=== PATIENT | female | born 1955 | race Caucasian/White ===

== ENCOUNTER 2022-07-28 17:15 | Emergency (ER) | payer MEDICARE, BC | END 2022-07-28 19:12 | disposition home or self-care (01) | LOC: JP.ED 17:15 | DX: S93.402A Sprain of unspecified ligament of left ankle, initial encounter (principal); Z88.0 Allergy status to penicillin; Z88.4 Allergy status to anesthetic agent; W10.9XXA Fall (on) (from) unspecified stairs and steps, initial encounter | CPT/HCPCS: 73562-26-LT; 73562-LT; 73610-26-LT; 73610-LT; 99282; 99283 ==

== ENCOUNTER 2022-10-08 15:13 | Inpatient (IN) | payer MEDICARE, BC ==
[2022-10-08] MEDS ORDERED: Naloxone 0.4 MG/ML SDV IVPUSH PRN (15:44)
[2022-10-08] MEDS ORDERED: Sodium Chloride 0.9% 10 ML Syringe FLUSH PRN (15:44)
[2022-10-08] MEDS ORDERED: HYDROmorphone 1 MG/ML Syringe IVPUSH ONE (15:44)
[2022-10-08] MEDS ORDERED: Ondansetron 4 MG/2 ML SDV IVPUSH ONE (15:44)
[2022-10-08] MEDS ORDERED: Sodium Chloride 0.9% 1,000 ML IV ONE (15:45)
[2022-10-08] MEDS ORDERED: Pantoprazole 40 MG Vial IVPUSH ONE (15:46)
[2022-10-08 15:51] LABS: BASOPHILS ABSOLUTE AUTO 0.04 K/uL (0.00-0.10); BASOPHILS PERCENT AUTO 0.8 % (0.1-1.3); EOSINOPHILS ABSOLUTE AUTO 0.12 K/uL (0.00-0.40); EOSINOPHILS PERCENT AUTO 2.3 % (0.0-5.4); HEMATOCRIT 37.9 % (34.3-46.0); HEMOGLOBIN 12.7 g/dL (11.2-15.5); IMMATURE GRAN ABSOLUTE AUTO 0.02 K/uL (0.00-0.23); IMMATURE GRAN PERCENT AUTO 0.4 % (0.0-0.7); LYMPHOCYTES ABSOLUTE AUTO 1.71 K/uL (0.8-3.3); LYMPHOCYTES PERCENT AUTO 32.3 % (11.4-47.7); MEAN CORPUSCULAR HEMOGLOBIN 28.5 pg (31.6-35.5); MEAN CORPUSCULAR HGB CONC 33.5 g/dL (31.6-35.5); MONOCYTES ABSOLUTE AUTO 0.32 K/uL (0.20-0.90); NEUTROPHILS ABSOLUTE AUTO 3.09 K/uL (1.0-7.6); NEUTROPHILS PERCENT AUTO 58.2 % (40.0-78.1); PLATELET COUNT,PLT 324 K/uL (130-375); RED BLOOD CELL COUNT 4.46 M/uL (3.77-5.24); WHITE BLOOD CELL COUNT,WBC 5.3 K/uL (3.2-11.0)
[2022-10-08 16:12] LABS: POTASSIUM,K 3.5 mmol/L (3.6-5.2); SODIUM,NA 141 mmol/L (140-148)
[2022-10-08 16:13] LABS: A/G RATIO 1.2 (1.2-2.2); ALKALINE PHOSPHATASE 94 U/L (46-116); ANION GAP 17.5 mmol/L (5.0-14.0); BILIRUBIN TOTAL 0.5 mg/dL (0.2-1.0); BLOOD UREA NITROGEN,BUN 15 mg/dL (7-18); CALCIUM 9.7 mg/dL (8.5-10.1); CARBON DIOXIDE,CO2 22 mmol/L (21-32); CHLORIDE,CL 105 mmol/L (100-108); CREATININE 0.9 mg/dL (0.6-1.0); EST CRCL DRUG DOSING (CG) 56.78 mL/min; ESTIMATED GFR 70 mL/min (>60); GLUCOSE RANDOM 101 mg/dL (74-106); PROTEIN TOTAL,TP 7.3 g/dL (6.4-8.2)
[2022-10-08 16:14] LABS: ALANINE AMINOTRANSFERASE,ALT 75 U/L (12-78); ASPARTATE AMNIOTRANSFERASE,AST 117 U/L (15-37)
[2022-10-08] MEDS ORDERED: Iopamidol 612 MG/ML 100 ML Bottle IV SCH (16:30)
[2022-10-08] MEDS ORDERED: Sodium Chloride 0.9% 50 ML IV SCH (16:30)
[2022-10-08] MEDS ORDERED: Enoxaparin 100 MG/1 ML Syringe SUBCUT ONE (17:21)
[2022-10-08] MEDS ORDERED: Ciprofloxacin in D5W 400 MG in Premix Bag 1 BAG IV ONE ×2 (17:23)
[2022-10-08] MEDS ORDERED: metroNIDAZOLE/Normal Saline 500 MG in Premix Bag 1 BAG IV ONE (17:24)
[2022-10-08] MEDS ORDERED: oxyCODONE 5 MG Tab PO PRN (19:58)
[2022-10-08] MEDS ORDERED: HYDROmorphone 0.5 MG/0.5 ML Syringe IVPUSH PRN (19:58)
[2022-10-08] MEDS ORDERED: Ondansetron 4 MG/2 ML SDV IV PRN (19:58)
[2022-10-08] MEDS ORDERED: Warfarin 5 MG Tab PO ONE (19:58)
[2022-10-08] MEDS ORDERED: Ondansetron 4 MG Tab.DIS PO PRN (19:58)
[2022-10-08] MEDS ORDERED: Magnesium Hydroxide 400 MG/5 ML Susp 30 ML Cup PO PRN (19:58)
[2022-10-08] MEDS ORDERED: Sennosides/Docusate Sodium 50-8.6 MG Tab PO PRN (19:58)
[2022-10-08] MEDS ORDERED: Melatonin 3 MG Tab PO PRN (19:58)
[2022-10-08 20:24] LABS: PROTHROMBIN TIME 9.9 sec (9.2-10.6)
[2022-10-08] MEDS: Sodium Chloride 0.9% 1,000 ML IV SCH (21:00)
[2022-10-08] MEDS: Potassium Chloride 10 MEQ in Premix Bag 1 BAG IV SCH ×3 (21:05→23:22)
[2022-10-08] MEDS: Fenofibrate,Micronized 67 MG Cap PO SCH (21:15)
[2022-10-08] MEDS: Lactobacillus Rhamnosus GG (Probiotic) Cap PO SCH (21:17)
[2022-10-08] MEDS ORDERED: Warfarin 5 MG Tab ONE (22:34)
[2022-10-09] MEDS: Potassium Chloride 10 MEQ in Premix Bag 1 BAG IV SCH (00:24)
[2022-10-09] MEDS: metroNIDAZOLE/Normal Saline 500 MG in Premix Bag 1 BAG IV SCH ×2 (02:14→10:25)
[2022-10-09] MEDS: Acetaminophen 325 MG Tab PO PRN ×2 (04:20→16:21)
[2022-10-09] MEDS: Enoxaparin 100 MG/1 ML Syringe SUBCUT SCH ×2 (04:21→16:17)
[2022-10-09 05:06] LABS: HEMATOCRIT 31.6 % (34.3-46.0); HEMOGLOBIN 10.5 g/dL (11.2-15.5); MEAN CORPUSCULAR HEMOGLOBIN 28.8 pg (31.6-35.5); MEAN CORPUSCULAR HGB CONC 33.2 g/dL (31.6-35.5); MEAN CORPUSCULAR VOLUME 86.6 fL (81.4-99.0); RED BLOOD CELL COUNT 3.65 M/uL (3.77-5.24); WHITE BLOOD CELL COUNT,WBC 8.2 K/uL (3.2-11.0)
[2022-10-09 05:22] LABS: INR 1.1; PROTHROMBIN TIME 11.3 sec (9.2-10.6)
[2022-10-09 05:27] LABS: A/G RATIO 1.1 (1.2-2.2); ALANINE AMINOTRANSFERASE,ALT 159 U/L (12-78); ALBUMIN 3.1 g/dL (3.4-5.0); ALKALINE PHOSPHATASE 92 U/L (46-116); ASPARTATE AMNIOTRANSFERASE,AST 159 U/L (15-37); BILIRUBIN TOTAL 0.4 mg/dL (0.2-1.0); BLOOD UREA NITROGEN,BUN 8 mg/dL (7-18); CALCIUM 8.2 mg/dL (8.5-10.1); CARBON DIOXIDE,CO2 26 mmol/L (21-32); CHLORIDE,CL 105 mmol/L (100-108); CREATININE 0.8 mg/dL (0.6-1.0); EST CRCL DRUG DOSING (CG) 63.88 mL/min; ESTIMATED GFR 81 mL/min (>60); GLUCOSE RANDOM 133 mg/dL (74-106); POTASSIUM,K 3.6 mmol/L (3.6-5.2); PROTEIN TOTAL,TP 5.9 g/dL (6.4-8.2); SODIUM,NA 137 mmol/L (140-148)
[2022-10-09 05:28] LABS: ANION GAP 9.6 mmol/L (5.0-14.0)
[2022-10-09] MEDS ORDERED: Ciprofloxacin in D5W 400 MG in Premix Bag 1 BAG IV SCH ×2 (06:00)
[2022-10-09] MEDS: Pantoprazole 40 MG Tab.CR PO SCH (07:47)
[2022-10-09] MEDS: Sodium Chloride 0.9% 1,000 ML IV SCH (08:58)
[2022-10-09] MEDS: Lactobacillus Rhamnosus GG (Probiotic) Cap PO SCH ×2 (08:58→20:21)
[2022-10-09] MEDS: buPROPion 150 MG Tab.ER PO SCH (08:58)
[2022-10-09] MEDS: Rosuvastatin 10 MG Tab PO SCH (08:58)
[2022-10-09] MEDS: DULoxetine 30 MG Cap PO SCH (08:58)
[2022-10-09] MEDS: Aspirin 81 MG Tab.EC PO SCH (08:58)
[2022-10-09] MEDS ORDERED: Warfarin 5 MG Tab PO SCH (13:00)
[2022-10-09] MEDS: Ciprofloxacin 500 MG Tab PO SCH (20:20)
[2022-10-09] MEDS: Fenofibrate,Micronized 67 MG Cap PO SCH (20:21)
[2022-10-09] MEDS: metroNIDAZOLE 250 MG Tab PO SCH (20:21)
[2022-10-09] MEDS ORDERED: Ciprofloxacin 500 MG Tab PO SCH (21:00)
[2022-10-10] MEDS: Enoxaparin 100 MG/1 ML Syringe SUBCUT SCH (05:06)
[2022-10-10 05:12] LABS: INR 2.8; PROTHROMBIN TIME 26.6 sec (9.2-10.6)
[2022-10-10 05:16] LABS: A/G RATIO 0.9 (1.2-2.2); ALANINE AMINOTRANSFERASE,ALT 128 U/L (12-78); ALBUMIN 2.9 g/dL (3.4-5.0); ALKALINE PHOSPHATASE 89 U/L (46-116); ASPARTATE AMNIOTRANSFERASE,AST 86 U/L (15-37); BILIRUBIN TOTAL 0.4 mg/dL (0.2-1.0); BLOOD UREA NITROGEN,BUN 8 mg/dL (7-18); CALCIUM 8.5 mg/dL (8.5-10.1); CARBON DIOXIDE,CO2 26 mmol/L (21-32); CHLORIDE,CL 104 mmol/L (100-108); CREATININE 0.8 mg/dL (0.6-1.0); EST CRCL DRUG DOSING (CG) 63.88 mL/min; ESTIMATED GFR 81 mL/min (>60); GLUCOSE RANDOM 101 mg/dL (74-106); POTASSIUM,K 3.4 mmol/L (3.6-5.2); PROTEIN TOTAL,TP 6.2 g/dL (6.4-8.2); SODIUM,NA 138 mmol/L (140-148)
[2022-10-10 05:20] LABS: ANION GAP 11.4 mmol/L (5.0-14.0)
[2022-10-10] MEDS: Lactobacillus Rhamnosus GG (Probiotic) Cap PO SCH (10:27)
[2022-10-10] MEDS: Aspirin 81 MG Tab.EC PO SCH (10:27)
[2022-10-10] MEDS: buPROPion 150 MG Tab.ER PO SCH (10:27)
[2022-10-10] MEDS: DULoxetine 30 MG Cap PO SCH (10:27)
[2022-10-10] MEDS: Rosuvastatin 10 MG Tab PO SCH (10:27)
[2022-10-10] MEDS: metroNIDAZOLE 250 MG Tab PO SCH ×2 (10:28→14:52)
[2022-10-10] MEDS: Pantoprazole 40 MG Tab.CR PO SCH (10:28)
[2022-10-10] MEDS: Ciprofloxacin 500 MG Tab PO SCH (10:28)
== END 2022-10-10 16:10 | disposition home or self-care (01) | DRG 444 ==
LOC: JP.ED 15:13 → JP.ICU 19:15
PROVIDERS: ADMIT Internal Medicine; ATTEND Internal Medicine
DX: K80.00 Calculus of gallbladder with acute cholecystitis without obstruction (principal); K85.90 Acute pancreatitis without necrosis or infection, unspecified; I82.0 Budd-Chiari syndrome; K85.80 Other acute pancreatitis without necrosis or infection; E78.00 Pure hypercholesterolemia, unspecified; K80.42 Calculus of bile duct with acute cholecystitis without obstruction; I81 Portal vein thrombosis; Z79.01 Long term (current) use of anticoagulants; Z79.84 Long term (current) use of oral hypoglycemic drugs; Z90.49 Acquired absence of other specified parts of digestive tract; Z88.8 Allergy status to other drugs, medicaments and biological substances; Z88.0 Allergy status to penicillin; Z90.710 Acquired absence of both cervix and uterus; Z98.890 Other specified postprocedural states; Z88.4 Allergy status to anesthetic agent; Z79.82 Long term (current) use of aspirin; Z79.899 Other long term (current) drug therapy
CPT/HCPCS: 36415; 74177 ×2; 80053; 83605; 83690; 84484; 85025; 93005; 93010; 96365; 96367; 96372; 96375; 99284; 99285; C9113; J0744; J1170; J1650; J2405; J3490 ×3; J7030; Q9967; 74181; 85027; 85610; 86140; 99222; 99232; 99238; A9270-GY; J3480; U0002

== ENCOUNTER 2022-10-29 07:13 | Day surgery (SDC) | payer MEDICARE, BC ==
[~2022-10-29 07:13] MED LIST: Bupivacaine 0.5% 50 ML MDV ONE; Lidocaine 1% with EPINEPHrine 1:100,000 50 ML MDV ONE
[2022-10-29] MEDS ORDERED: Propofol 200 MG/20 ML SDV ONE ×2 (07:30→10:06)
[2022-10-29] MEDS ORDERED: fentaNYL 100 MCG/2 ML SDV ONE (07:30)
[2022-10-29] MEDS ORDERED: Midazolam 1 MG/ML 2 ML SDV ONE (07:30)
[2022-10-29] MEDS ORDERED: Lidocaine 0.5% 50 ML SDV ONE (07:31)
[2022-10-29] MEDS ORDERED: Dextrose 5%-Lactated Ringers 1,000 ML IV SCH (08:00)
[2022-10-29] MEDS ORDERED: ceFAZolin 2 GM in Premix Bag 1 BAG IV ONE (08:30)
== END 2022-10-29 11:48 | disposition home or self-care (01) ==
LOC: JP.SDS 07:13
PROVIDERS: ATTEND Surgery
DX: S60.452A Superficial foreign body of right middle finger, initial encounter (principal); E11.9 Type 2 diabetes mellitus without complications; G47.33 Obstructive sleep apnea (adult) (pediatric); E78.5 Hyperlipidemia, unspecified; E66.9 Obesity, unspecified; Z88.0 Allergy status to penicillin; Z87.892 Personal history of anaphylaxis; X58.XXXA Exposure to other specified factors, initial encounter
CPT/HCPCS: 26180; 88307; J0690; J2020; J2250; J2704; J3010; J7121; J3490

== ENCOUNTER 2022-12-24 06:05 | Day surgery (SDC) | payer MEDICARE, BC ==
[2022-12-24] MEDS ORDERED: Dextrose 5%-Lactated Ringers 1,000 ML IV SCH (07:00)
[2022-12-24] MEDS ORDERED: Midazolam 1 MG/ML 2 ML SDV ONE (07:10)
[2022-12-24] MEDS ORDERED: Propofol 200 MG/20 ML SDV ONE ×2 (07:10→08:18)
[2022-12-24] MEDS ORDERED: fentaNYL 50 MCG/ML SDV ONE (07:10)
[2022-12-24] MEDS ORDERED: Lactated Ringers 1,000 ML IV SCH (07:30)
[2022-12-24 07:43] LABS: INR 1.9; PROTHROMBIN TIME 18.9 sec (9.2-10.6)
[2022-12-24] MEDS ORDERED: Pantoprazole 40 MG Vial IVPUSH ONE (08:45)
== END 2022-12-24 09:30 | disposition home or self-care (01) ==
LOC: JP.SDS 06:05
PROVIDERS: ATTEND Surgery
DX: K29.71 Gastritis, unspecified, with bleeding (principal); K25.4 Chronic or unspecified gastric ulcer with hemorrhage; K44.9 Diaphragmatic hernia without obstruction or gangrene; K57.31 Diverticulosis of large intestine without perforation or abscess with bleeding; K64.9 Unspecified hemorrhoids; G47.33 Obstructive sleep apnea (adult) (pediatric); M19.90 Unspecified osteoarthritis, unspecified site; E11.9 Type 2 diabetes mellitus without complications; E66.9 Obesity, unspecified; Z79.82 Long term (current) use of aspirin; Z88.0 Allergy status to penicillin; Z88.8 Allergy status to other drugs, medicaments and biological substances; Z68.34 Body mass index [BMI] 34.0-34.9, adult
CPT/HCPCS: 36415; 43239; 45378; 85018; 85610; 87081; C9113; J2250; J2704; J3010; J7121

== ENCOUNTER 2023-05-13 12:02 | Observation (INO) | payer MEDICARE, BC ==
[~2023-05-13 12:02] MED LIST changes: +Acetaminophen 500 MG Tab PO ONE; -Bupivacaine 0.5% 50 ML MDV ONE; +Ertapenem 1 GM in Sodium Chloride 0.9% 50 ML IV ONE; +Indocyanine Green 25 MG SDV IV ONE; -Lidocaine 1% with EPINEPHrine 1:100,000 50 ML MDV ONE
[2023-05-13] MEDS: Acetaminophen 500 MG Tab PO ONE (13:00)
[2023-05-13] MEDS: Lactated Ringers 1,000 ML IV SCH (13:35)
[2023-05-13] MEDS: Indocyanine Green 25 MG SDV IV ONE (13:48)
[2023-05-13] MEDS ORDERED: Propofol 200 MG/20 ML SDV ONE (13:49)
[2023-05-13] MEDS ORDERED: Succinylcholine 200 MG/10 ML MDV ONE (13:49)
[2023-05-13] MEDS ORDERED: Rocuronium 50 MG/5 ML Vial ONE (13:49)
[2023-05-13] MEDS ORDERED: Glycopyrrolate 0.2 MG/ML 5 ML MDV ONE (13:49)
[2023-05-13] MEDS ORDERED: Dexamethasone 4 MG/ML SDV ONE (13:49)
[2023-05-13] MEDS ORDERED: Ondansetron 4 MG/2 ML SDV ONE (13:49)
[2023-05-13] MEDS ORDERED: Neostigmine Methylsulfate 10 MG/10 ML MDV ONE (13:49)
[2023-05-13] MEDS ORDERED: fentaNYL 250 MCG/5 ML SDV ONE ×2 (13:53→16:22)
[2023-05-13] MEDS ORDERED: Lactated Ringers 1,000 ML ONE ×2 (14:20→16:58)
[2023-05-13] MEDS: Bupivacaine 0.5%/EPINEPHrine 1:200,000 50 ML MDV ONE (16:48)
[2023-05-13] MEDS ORDERED: Sennosides/Docusate Sodium 50-8.6 MG Tab PO PRN (17:58)
[2023-05-13] MEDS ORDERED: Ondansetron 4 MG/2 ML SDV IVPUSH PRN (17:58)
[2023-05-13] MEDS ORDERED: Glucagon,Human Recombinant 1 MG Vial IM PRN (18:02)
[2023-05-13] MEDS ORDERED: 50% Dextrose in Water 50 ML Syringe IVPUSH PRN (18:02)
[2023-05-13] MEDS: Acetaminophen/HYDROcodone 325-5 MG Tab PO PRN (19:41)
[2023-05-13] MEDS: Ertapenem 1 GM in Sodium Chloride 0.9% 50 ML IV ONE (19:56)
[2023-05-13] MEDS: Insulin Lispro 100 Unit/ML 3 ML KwikPen SUBCUT SCH (21:25)
[2023-05-13] MEDS: Benzocaine/Cetylpyridinium/Menthol Lozenge MUCMEM PRN (22:11)
[2023-05-14] MEDS: Tamsulosin 0.4 MG Cap.ER PO ONE (04:12)
[2023-05-14 06:25] LABS: HEMOGLOBIN 11.1 g/dL (11.2-15.5); MEAN CORPUSCULAR HGB CONC 32.6 g/dL (31.6-35.5); MEAN CORPUSCULAR VOLUME 82.7 fL (81.4-99.0); RED BLOOD CELL COUNT 4.11 M/uL (3.77-5.24)
[2023-05-14 06:53] LABS: ALANINE AMINOTRANSFERASE,ALT 34 U/L (12-78); ALBUMIN 3.4 g/dL (3.4-5.0); ALKALINE PHOSPHATASE 58 U/L (46-116); ASPARTATE AMNIOTRANSFERASE,AST 31 U/L (15-37); BILIRUBIN TOTAL 0.4 mg/dL (0.2-1.0); BLOOD UREA NITROGEN,BUN 16 mg/dL (7-18); CALCIUM 8.1 mg/dL (8.5-10.1); CARBON DIOXIDE,CO2 28 mmol/L (21-32); CHLORIDE,CL 100 mmol/L (100-108); CREATININE 0.9 mg/dL (0.6-1.0); EST CRCL DRUG DOSING (CG) 56.78 mL/min; ESTIMATED GFR 70 mL/min (>60); GLUCOSE RANDOM 129 mg/dL (74-106); MAGNESIUM 1.8 mg/dL (1.8-2.4); PHOSPHORUS 4.5 mg/dL (2.5-4.9); POTASSIUM,K 4.3 mmol/L (3.6-5.2); PROTEIN TOTAL,TP 6.7 g/dL (6.4-8.2); SODIUM,NA 136 mmol/L (140-148)
[2023-05-14 06:54] LABS: ANION GAP 12.3 mmol/L (5.0-14.0)
[2023-05-14] MEDS: Pantoprazole 40 MG Tab.CR PO SCH (10:35)
[2023-05-14] MEDS: DULoxetine 30 MG Cap PO SCH (11:13)
[2023-05-14] MEDS: buPROPion 150 MG Tab.ER PO SCH (11:13)
[2023-05-15] MEDS ORDERED: Tamsulosin 0.4 MG Cap.ER PO SCH (09:00)
== END 2023-05-14 13:15 | disposition home or self-care (01) ==
LOC: JP.SDS 12:02 → JP.MS 17:58
PROVIDERS: ADMIT Student in an Organized Health Care Education/Training Program; ATTEND Student in an Organized Health Care Education/Training Program
DX: K80.10 Calculus of gallbladder with chronic cholecystitis without obstruction (principal); K82.8 Other specified diseases of gallbladder; E11.69 Type 2 diabetes mellitus with other specified complication; E78.00 Pure hypercholesterolemia, unspecified; G47.33 Obstructive sleep apnea (adult) (pediatric); E66.9 Obesity, unspecified; Z68.34 Body mass index [BMI] 34.0-34.9, adult; Z90.49 Acquired absence of other specified parts of digestive tract; Z98.890 Other specified postprocedural states; Z79.84 Long term (current) use of oral hypoglycemic drugs; Z79.82 Long term (current) use of aspirin; Z79.899 Other long term (current) drug therapy; Z88.0 Allergy status to penicillin
CPT/HCPCS: 36415; 47563; 80053; 82947; 83735; 84100; 85027; 88304; A9270; C1758; J0330; J1100; J2704; J2710; J3010; J3490; J7120; J1815; J2405